=== PATIENT | female | born 1995 | race Caucasian/White ===

== ENCOUNTER 2022-08-27 10:37 | Emergency (ER) | payer MEDICAID ==
[~2022-08-27] VITALS: Ht 175.3 cm; Wt 99.0 kg
[2022-08-27 10:55] VITALS: BP 143/97
== END 2022-08-27 14:02 | disposition left against medical advice (07) ==
LOC: ER 13:03
DX: Z53.21 Procedure and treatment not carried out due to patient leaving prior to being seen by health care provider (principal)
CPT/HCPCS: 81025